=== PATIENT | female | born 1995 | race Two or more races ===

== ENCOUNTER → 2017-06-11 | Day surgery (SDC) | payer OTHER ==
[~2017-06-11] MED LIST: PERCOCET 5-3251 EACH PO; SKYLA1 EACH IY
== END | disposition home or self-care (01) ==
LOC: ADM 06-08 07:30 → CIR.AMB 07:30
DX: R10.2 Pelvic and perineal pain (principal); N83.292 Other ovarian cyst, left side; N80.1 Endometriosis of ovary